=== PATIENT | male | born 2005 | race African-American/Black ===

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

== ENCOUNTER 2024-06-24 11:11 | Emergency (ER) | payer OTHER, SELFPAY ==
[2024-06-24 11:54] LABS: #Basophils Less than 0.03 10x3/uL (0.0-0.2); %Basophils 0.5 % (0.0-1.0); %Eosinophils 1.4 % (0.0-10.0); %Lymphocytes 36.9 % (28.0-48.0); %Monocytes 10.8 % (0.0-4.0); %Neutrophils 50.4 % (31.0-61.0); Hematocrit 41.4 % (42.0-52.0); Hemoglobin 14.7 g/dL (14.0-18.0); Mean Corpuscular HGB CONC 35.5 g/dL (32.0-36.0); Mean Corpuscular Hemoglobin 30.9 pg (25.0-35.0); Mean Platelet Volume 9.8 fL (7.4-10.4); Platelet Count 228 10x3/uL (130-400); RBC Distribution Width 12.6 % (11.5-14.5); Red Blood Cell (RBC) Count 4.76 mill/uL (4.00-5.20)
[2024-06-24 12:08] LABS: ALT (SGPT) 7 U/L (8-55); AST (SGOT) 14 U/L (10-45); Albumin 4.8 g/dL (3.5-5.0); Alkaline Phosphatase 62 U/L (50-130); Anion Gap 12 mmol/L (10-20); BUN (Urea Nitrogen) 9 mg/dL (8.4-21.0); Bilirubin, Total 1.6 mg/dL (0.2-1.2); Calc. Creatinine Clearance 0 mL/min (70-130); Calcium 9.8 mg/dL (7.8-10.44); Carbon Dioxide 23 mmol/L (22-29); Chloride 108 mmol/L (98-107); Estimated GFR 130; Globulin 2.6 g/dL (2.4-3.5); Glucose 84 mg/dL (70-105); Lipase 13 U/L (8-78); Potassium 3.4 mmol/L (3.5-5.1); Protein, Total 7.4 g/dL (6.0-8.3); Sodium 140 mmol/L (136-145)
[2024-06-24 12:12] LABS: Troponin I Less than 0.010 ng/mL (< 0.028)
[2024-06-24] MEDS ORDERED: Potassium Chloride 20 MEQ TAB ONE (12:46)
== END 2024-06-24 13:00 | disposition home or self-care (01) ==
LOC: ERS 11:11
DX: R07.89 Other chest pain (principal); R94.5 Abnormal results of liver function studies; D72.819 Decreased white blood cell count, unspecified; R11.2 Nausea with vomiting, unspecified; N62 Hypertrophy of breast; Z55.6 Problems related to health literacy; F17.200 Nicotine dependence, unspecified, uncomplicated
CPT/HCPCS: 36415; 71045; 80053; 83690; 84484; 85025; 93005